=== PATIENT | female | born 1955 | race Caucasian/White ===

== ENCOUNTER 2018-05-20 14:27 | Outpatient (CLI) | payer OTHER | END 2018-05-20 14:28 | disposition home or self-care (01) | LOC: CTENTCT 14:27 | PROVIDERS: ATTEND Specialist | DX: J32.9 Chronic sinusitis, unspecified (principal) | CPT/HCPCS: 70486 ==

== ENCOUNTER 2018-09-30 10:20 | Outpatient (CLI) | payer OTHER | END 2018-09-30 10:21 | disposition home or self-care (01) | LOC: CTENTCT 10:20 | PROVIDERS: ATTEND Specialist | DX: R51 Headache (principal) | CPT/HCPCS: 70486 ==

== ENCOUNTER 2021-01-10 15:09 | Outpatient (CLI) | payer MEDICARE, OTHER | END 2021-01-10 15:10 | disposition home or self-care (01) | LOC: CTENTCT 15:09 | PROVIDERS: ATTEND Specialist | DX: J32.9 Chronic sinusitis, unspecified (principal) | CPT/HCPCS: 70486 ==